=== PATIENT | female | born 1940 | race African-American/Black ===

== ENCOUNTER 2016-04-23 02:34 | Emergency (ER) | payer OTHER ==
[~2016-04-23] VITALS: Ht 162.6 cm; Wt 82.6 kg
[2016-04-23] MEDS ORDERED: METOPROLOL TART25 MG ORAL (02:50)
[2016-04-23] MEDS ORDERED: ATORVASTATIN CA80 MG ORAL (02:50)
[2016-04-23] MEDS ORDERED: CAPOTEN12.5 MG PO (02:50)
[2016-04-23] MEDS ORDERED: HYDROCODON-ACE1 EA15 ORAL (02:50)
[2016-04-23] MEDS ORDERED: ASPIRIN81 MG ORAL (02:50)
[2016-04-23] MEDS ORDERED: PAMELOR10 MG ORAL (02:50)
[2016-04-23] MEDS ORDERED: ROBAXIN-750750 MG PO (03:09)
[2016-04-23] MEDS ORDERED: Methocarbamol 750mg tab ORAL ONE (03:15)
--- NOTE | 2016-04-23 03:30 | Emergency Room Report ---
History of Present Illness General Chief Complaint: Pain Source: Patient, Medical Record Present Illness HPI 76 YO F with known right sided sciatica presents with pain for 6 months. Has been to other EDs recently including [place] last week where "they did nothing." Has lidocaine patch at home. Makes specific request for [employer] here. History of CAD s/p stent. No known kidney disease. Denies acute worsening of pain, trauma, urinary/bowel incontinence, lower extremity weakness, IVDU, history of cancer, fever/chills. Allergies: Coded Allergies: PENICILLINS (Verified Allergy, Unknown, 04/23/16) SULFA (SULFONAMIDE ANTIBIOTICS) (Verified Allergy, Unknown, 04/23/16) Patient History Past Medical History: HTN, CAD, other - sciatica Past Surgical History: other - stent placeemnt Pertinent Family History: none Social History: Denies: alcohol use, drug use, smoking Now: No Immunizations: UTD Reviewed Nursing Documentation: PMH: Agreed, PSxH: Agreed Nursing Documentation-PMH Hx Hypertension: Yes Review of Systems All Other Systems: negative except mentioned in HPI Physical Exam Vital Signs Date Time Temp Pulse Resp B/P Pulse Ox O2 Delivery O2 Flow Rate FiO2 04/23/16 02:37 98.1 97 16 148/80 100 Room Air Sp02 EP Interpretation: reviewed, normal General Appearance: normal inspection, well appearing, no apparent distress, alert, GCS 15, non-toxic Head: normocephalic, atraumatic Eyes: bilateral eye EOMI, bilateral eye PERRL ENT: normal ENT inspection, hearing grossly normal, normal voice Neck: normal inspection, full range of motion, supple, no bony tend Respiratory: normal inspection, lungs clear, normal breath sounds, no respiratory distress, no retraction, no wheezing Cardiovascular #1: regular rate, rhythm, no edema Gastrointestinal: normal inspection, normal bowel sounds, non tender, soft, no guarding, no hernia Genitourinary: no CVA tenderness Musculoskeletal: normal inspection, back normal, normal range of motion, non- tender, no calf tenderness, pelvis stable, Javier's Sign negative, other - + straight leg raise bilaterally with pain at 30 degrees Neurologic: normal inspection, alert, oriented x3, responsive, drug enforcement agent III-XII nml as tested, speech normal Psychiatric: normal inspection, judgement/insight normal, mood/affect normal Skin: normal inspection, normal color, no rash Lymphatic: normal inspection Medical Decision Making Diagnostic Impression: Primary Impression: Sciatica of right side ER Course 76 YO F with chronic right sided sciatica VSS. Afebrile. Atraumatic No focal neuro deficits No acute worsening No signs concerning for cord compression Specific request made for [facility] - ?drug seeking Cant give NSAIDS d/t known CAD, stent placement Patient refused Codeine Will try trial of Robaxin PMD followup Last Vital Signs Date Time Temp Pulse Resp B/P Pulse Ox O2 Delivery O2 Flow Rate FiO2 04/23/16 02:37 98.1 97 16 148/80 100 Room Air Status: improved Disposition: HOME, SELF-CARE Condition: Improved Scripts Methocarbamol* (ROBAXIN-750*) 750 Mg Tablet 750 MG PO TID, #30 TAB 0 Refills Prov: CASTILLO MAIER M.D. 04/23/16 Patient Instructions: Sciatica, [id number] Additional Instructions: - Take robaxin up to 3x a day as needed for sciatica pain - Follow up with your doctor in 2-3 days if no improvement CASTILLO MAIER M.D. Apr 23, 2016 03:30
[2016-04-23 04:30] VITALS: BP 126/72
[2016-04-23 04:33] VITALS: BP 126/72
== END 2016-04-23 04:37 | disposition home or self-care (01) ==
LOC: EDBD 02:34 → EMR 02:47
DX: M54.31 Sciatica, right side (principal); I10 Essential (primary) hypertension; I25.10 Atherosclerotic heart disease of native coronary artery without angina pectoris; E78.00 Pure hypercholesterolemia, unspecified; M17.0 Bilateral primary osteoarthritis of knee; Z88.0 Allergy status to penicillin; Z91.09 Other allergy status, other than to drugs and biological substances
CPT/HCPCS: 99283